=== PATIENT | female | born 1960 | race Caucasian/White ===

== ENCOUNTER 2020-05-26 14:50 | Outpatient (REF) | payer BC, SELFPAY ==
[2020-05-28 16:43] LABS: HPV mRNA E6/E7 Not Detected (Not Detected)
== END 2020-05-26 14:51 | disposition home or self-care (01) ==
LOC: HO.LAB 14:50
PROVIDERS: PCP Internal Medicine; Visit Provider Obstetrics & Gynecology
DX: Z01.419 Encounter for gynecological examination (general) (routine) without abnormal findings (principal); Z78.0 Asymptomatic menopausal state
CPT/HCPCS: 87624; 88142

== ENCOUNTER 2020-10-24 15:51 | Outpatient (REF) | payer BC, SELFPAY ==
--- NOTE | ~2020-10-24 | MM_ITS ---
EXAMINATION: MM SCREENING DIGITAL MAMMOGRAPHY, BILATERAL CLINICAL INFORMATION: Screening. Asymptomatic. The lifetime risk of breast cancer based on the Tyrer-Cuzick Model is 7%. COMPARISON: Mammography: 06/25/2019, 06/19/2018, 05/03/2017, 04/15/2016 TECHNIQUE: Digital mammography is performed in craniocaudal and mediolateral oblique views along with computer-aided detection (CAD). FINDINGS: The breasts are heterogeneously dense, which may obscure small masses (ACR BI-RADS breast composition Category c). Parenchymal pattern is similar to prior studies. There is no significant mass or architectural abnormality or focal developing density. No abnormal calcifications. The axilla and skin contours are unremarkable. MM/MM screening mammo BI IMPRESSION: No significant changes from prior exams. ASSESSMENT: BI-RADS 1: Negative RECOMMENDATION: Routine annual mammography screening. This patient's information was entered into a reminder system with a target due date for their next mammogram.
== END 2020-10-24 15:52 | disposition home or self-care (01) ==
LOC: HO.MAMMO 15:51
PROVIDERS: PCP Internal Medicine; Visit Provider Obstetrics & Gynecology
DX: Z12.31 Encounter for screening mammogram for malignant neoplasm of breast (principal)
CPT/HCPCS: 77067

== ENCOUNTER → 2021-05-28 14:38 | Outpatient (BNVA) | payer BC, SELFPAY | PROVIDERS: PCP Internal Medicine; Visit Provider Obstetrics & Gynecology ==

== ENCOUNTER 2021-10-26 14:56 | Outpatient (REF) | payer BC, SELFPAY ==
--- NOTE | ~2021-10-26 | MM_ITS ---
EXAMINATION: MM SCREENING DIGITAL BREAST TOMOSYNTHESIS, BILATERAL CLINICAL INFORMATION: Screening. Asymptomatic. The lifetime risk of breast cancer based on the Tyrer-Cuzick Model is 9%. COMPARISON: Mammography: 10/24/2020, 06/25/2019, 06/19/2018 TECHNIQUE: Digital breast tomosynthesis is performed in both the craniocaudal and mediolateral oblique views along with computer-aided detection (CAD). Synthesized 2D images are generated from the tomosynthesis. FINDINGS: The breasts are heterogeneously dense, which may obscure small masses (ACR BI-RADS breast composition Category c). There are no significant masses, abnormal calcifications, or other abnormalities. Parenchymal pattern is similar to prior studies. No developing density or interval architectural abnormality. The axilla and skin contours are unremarkable. No significant changes. MM/MM tomosynthesis screening BI IMPRESSION: No mammographic evidence of malignancy. ASSESSMENT: BI-RADS 1: Negative RECOMMENDATION: Routine annual mammography screening. This patient's information was entered into a reminder system with a target due date for their next mammogram.
== END 2021-10-26 14:57 | disposition home or self-care (01) ==
LOC: HO.MAMMO 14:56
PROVIDERS: Visit Provider Internal Medicine
DX: Z12.31 Encounter for screening mammogram for malignant neoplasm of breast (principal)
CPT/HCPCS: 77063; 77067

== ENCOUNTER 2021-11-05 12:50 | Outpatient (REF) | payer BC, SELFPAY ==
--- NOTE | ~2021-11-05 | MM_ITS ---
EXAMINATION: BONE DENSITOMETRY CLINICAL INDICATION: Osteoporosis. COMPARISON: Previous BD dated 08/30/2019 and baseline BD dated 06/23/2010. TECHNIQUE: Using a [employer]choox DXA System (software version: 13.1) manufactured by [employer], dual-energy x-ray absorptiometry was performed of the lumbar spine and left hip. The images are of good technical quality. Summary results are attached. FINDINGS: AP SPINE L1-L4: Current: BMD 1.061 g/cm2, Z-score 1.0, T-score -1.0, normal, 2.5% increase from previous, 0.2% increase from baseline (<5% change is not significant). Prior: BMD 1.035 g/cm2. Baseline: BMD 1.059 g/cm2. LEFT FEMUR, NECK: Current: BMD 0.719 g/cm2, Z-score -0.6, T-score -2.3, osteopenia. Prior: BMD 0.678 g/cm2. Baseline: BMD 0.708 g/cm2. LEFT FEMUR, TOTAL: Current: BMD 0.844 g/cm2, Z-score 0.2, T-score -1.3, osteopenia, 0.7% increase from previous, 2.9% decrease from baseline (<5% change is not significant). Prior: BMD 0.838 g/cm2. Baseline: BMD 0.869 g/cm2. IDENTIFIED RISK FACTORS: Menopause, osteoporosis. HISTORY OF FRACTURE: Foot. MEDICATIONS: Calcium, vitamin D. MM/XR DEXA axial skeleton IMPRESSION: 1. DIAGNOSIS: Osteopenia based on the lowest T-score value of -2.3 in the femoral neck applying World Health Organization criteria. 2. 10-YEAR FRACTURE RISK PREDICTION, FRAX: Major osteoporotic fracture (clinical spine, forearm, hip or shoulder) 10.0%. Hip fracture 1.8%. 3. Treatment Recommendations: NOF guidelines recommend consideration for treatment in postmenopausal women and men age 50 and older presenting with the following: -A hip or vertebral (clinical or morphometric) fracture. -T-score less than or equal to -2.5 at the femoral neck or spine after appropriate evaluation to exclude secondary causes. -Low bone mass at the hip or spine and a 10-year fracture probability by FRAX of greater than or equal to 3% for hip fracture or greater than or equal to 20% for major osteoporotic fracture based on the [place] adapted WHO algorithm. 4. Other Recommendations: All treatment decisions require clinical judgment and consideration of individual patient factors, including patient preferences, comorbidities, previous drug use, risk factors not captured in the FRAX model (e.g. frailty, falls, vitamin D deficiency, increased bone turnover, interval significant decline in bone density) and possible under or overestimation of fracture risk by FRAX. Additional medical evaluation for secondary cause of low bone mineral density may be appropriate. FUTURE SCAN RECOMMENDATION: People with diagnosed cases of osteoporosis or at high risk for fracture should have regular bone mineral density tests. For patients eligible for Medicare, routine testing is allowed once every 2 years. The testing frequency can be increased to one year for patients who have rapidly progressing disease, those who are receiving or discontinuing medical therapy to restore bone mass, or have additional risk factors.
== END 2021-11-05 12:51 | disposition home or self-care (01) ==
LOC: HO.MAMMO 12:50
PROVIDERS: PCP Internal Medicine; Visit Provider Internal Medicine
DX: M81.0 Age-related osteoporosis without current pathological fracture (principal); Z78.0 Asymptomatic menopausal state
CPT/HCPCS: 77080

== ENCOUNTER → 2022-06-01 13:04 | Outpatient (BNVA) | payer BC, SELFPAY | PROVIDERS: Visit Provider Obstetrics & Gynecology | DX: Z01.419 Encounter for gynecological examination (general) (routine) without abnormal findings (principal) ==

== ENCOUNTER 2022-11-01 14:13 | Outpatient (REF) | payer BC, SELFPAY ==
--- NOTE | ~2022-11-01 | MM_ITS ---
EXAMINATION: MM SCREENING DIGITAL BREAST TOMOSYNTHESIS, BILATERAL CLINICAL INFORMATION: Screening. Asymptomatic. The lifetime risk of breast cancer based on the Tyrer-Cuzick Model is 9%. COMPARISON: Mammography: 10/26/2021, 10/24/2020, 06/25/2019 TECHNIQUE: Digital breast tomosynthesis is performed in both the craniocaudal and mediolateral oblique views along with computer-aided detection (CAD). Synthesized 2D images are generated from the tomosynthesis. FINDINGS: The breasts are heterogeneously dense, which may obscure small masses (ACR BI-RADS breast composition Category c). There are no significant masses, abnormal calcifications, or other abnormalities. Parenchymal pattern is similar to prior studies. There is no developing density or architectural abnormality. There are some vascular calcifications posterior 4:00 left breast. The axilla and skin contours are unremarkable. No significant changes. MM/MM tomosynthesis screening BI IMPRESSION: No mammographic evidence of malignancy. ASSESSMENT: BI-RADS 2: Benign RECOMMENDATION: Routine annual mammography screening. This patient's information was entered into a reminder system with a target due date for their next mammogram.
== END 2022-11-01 14:14 | disposition home or self-care (01) ==
LOC: HO.MAMMO 14:13
PROVIDERS: PCP Internal Medicine; Visit Provider Internal Medicine
DX: Z12.31 Encounter for screening mammogram for malignant neoplasm of breast (principal)
CPT/HCPCS: 77063; 77067

== ENCOUNTER 2023-06-14 13:41 | Outpatient (AMB) | payer BC, SELFPAY ==
[2023-06-14 13:49] VITALS: BP 102/64; BMI 20.1
--- NOTE | 2023-06-14 13:49 | A.OFFVIS_ITS ---
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 No complaints. Last Pap/HPV was negative in 06/01 Last Mammogram was BI-RADS 2 in 11/02 Last Colonoscopy was 12 years ago, the patient is in the process of scheduling her next screening colonoscopy PFSH Medical History Depression Osteoporosis Surgical History History of dental surgery H/O foot surgery Social History Alcohol intake: never Sexual orientation: Straight/Heterosexual Gender identity: Female Female Reproductive History Menstrual Age of Menarche: 11 Review of Systems Const All systems reviewed & are unremarkable except as noted in HPI and below Card Reports as per HPI Resp Reports as per HPI GI Reports as per HPI and Reports no additional complaints Reports as per HPI Physical Exam Vital Signs: Last Vital Signs BP 102/64 06/14/23 13:49 BMI result Body Mass Index 20.1 Const General: cooperative, healthy appearing and comfortable Chest Chest palpation & inspection: normal inspection of the chest and normal palpation of entire chest wall Breast/axilla inspection: normal inspection of the breasts and normal inspection of the axillae Breast/axilla palpation: normal palpation of the breasts, normal palpation of the axillae and no axillary lymphadenopathy Resp Effort & Inspection: normal respiratory effort Auscultation: clear to auscultation bilaterally Percussion: percussion normal Cardio Palpation: normal PMI Rate: regular rate Rhythm: regular rhythm Heart sounds: no murmurs and no rubs Peripheral pulses: Peripheral pulses 2+ throughout GI Inspection: Yes normal to inspection Palpation (GI): Soft to palpation, nontender, no guarding, not rigid and No hepatosplenomegaly present Percussion: Yes normal to percussion Auscultation: normal bowel sounds Rectal Exam - Female: deferred General: Yes bladder normal to palpation External Female Exam: No lesion Speculum Exam - Vagina: normal appearance of the vagina, normal palpation, normal vaginal discharge and not erythematous Speculum Exam - Cervix: normal appearance of the cervix and normal palpation Bimanual exam- vagina & uterus: normal bimanual exam, normal palpation, uterine size normal, bladder normal to palpation, consistency normal and normal palpat ion Bimanual Exam- Adnexa, other: normal adnexae, no masses and no tenderness Assessment & Plan Assessment & Plan (1) Well woman exam: Code(s): Z01.419 - Encounter for gynecological examination (general) (routine) without abnormal findings Plan: Co testing not indicated this year. Counseled the patient about the recommended dietary allowance of 1200 mg of Calcium & 600 IU of vitamin D. Instructions given the patient to schedule next screen Mammogram in 11/03. The patient is in the process of scheduling her next screening colonoscopy . The patient was instructed to perform monthly self-breast exams and schedule annual exam in a year. All questions answered and the patient verbalized understanding. Coding Level of Care Code Est Pt Prev Care 40-64y(27613) Diagnoses Well woman exam Z01.419
== END 2023-06-14 14:25 | disposition home or self-care (01) ==
LOC: HO.HWS 13:41
PROVIDERS: PCP Internal Medicine; Visit Provider Obstetrics & Gynecology
DX: Z01.419 Encounter for gynecological examination (general) (routine) without abnormal findings (principal)
CPT/HCPCS: 99396

== ENCOUNTER → 2023-06-14 13:41 | Outpatient (BNVA) | payer BC, SELFPAY | PROVIDERS: PCP Internal Medicine; Visit Provider Obstetrics & Gynecology ==

== ENCOUNTER 2023-11-08 13:36 | Outpatient (REF) | payer BC, SELFPAY | END 2023-11-08 13:37 | disposition home or self-care (01) | LOC: HO.MAMMO 13:36 | PROVIDERS: PCP Internal Medicine; Visit Provider Internal Medicine | DX: Z12.31 Encounter for screening mammogram for malignant neoplasm of breast (principal) | CPT/HCPCS: 77063; 77067 ==

== ENCOUNTER → 2023-11-08 14:00 | Outpatient (BNV) | payer BC, SELFPAY | PROVIDERS: PCP Internal Medicine; Visit Provider Radiology Diagnostic Radiology | DX: Z12.31 Encounter for screening mammogram for malignant neoplasm of breast (principal) | CPT/HCPCS: 77063; 77067 ==

== ENCOUNTER 2023-12-20 08:33 | Outpatient (REF) | payer BC, SELFPAY ==
--- NOTE | ~2023-12-20 | MM_ITS ---
EXAMINATION: BONE DENSITOMETRY CLINICAL INDICATION: Osteopenia. COMPARISON: Previous BD dated 11/05/2021 and baseline BD dated 06/23/2010. TECHNIQUE: Using a [employer] DXA System (software version: 13.1) manufactured by [employer], dual-energy x-ray absorptiometry was performed of the lumbar spine and left hip. The images are of good technical quality. Summary results are attached. FINDINGS: LEFT FEMUR, NECK: Current: BMD 0.645 g/cm2, Z-score -1.0, T-score -2.8, osteoporosis. Prior: BMD 0.719 g/cm2. Baseline: BMD 0.708 g/cm2. LEFT FEMUR, TOTAL: Current: BMD 0.795 g/cm2, Z-score -0.1, T-score -1.7, osteopenia, 5.8% decrease from previous, 8.5% decrease from baseline (<5% change is not significant). Prior: BMD 0.844 g/cm2. Baseline: BMD 0.869 g/cm2. AP SPINE L1-L3 (excluding L4): The data of L1-L4 has been changed to exclude the L4 vertebral body, because degenerative sclerosis at this level may cause overestimation of lumbar spine density. Current: BMD 0.981 g/cm2, Z-score 0.5, T-score -1.6, osteopenia, 4.4% decrease from previous, 7.9% decrease from baseline (<5% change is not significant). Prior: BMD 1.026 g/cm2. Baseline: BMD 1.065 g/cm2. IDENTIFIED RISK FACTORS: Menopause. HISTORY OF FRACTURE: None listed. MEDICATIONS: Calcium supplements or multivitamin, vitamin D, bisphosphonates. MM/XR DEXA axial skeleton IMPRESSION: 1. DIAGNOSIS: Osteoporosis based on the lowest T-score value of -2.8 in the femoral neck applying World Health Organization criteria. 2. 10-YEAR FRACTURE RISK PREDICTION, FRAX: According to the guidelines, FRAX calculation should only be performed on patients in the osteopenia bone density category. Therefore, FRAX was not performed on this patient. 3. Treatment Recommendations: NOF guidelines recommend consideration for treatment in postmenopausal women and men age 50 and older presenting with the following: -A hip or vertebral (clinical or morphometric) fracture. -T-score less than or equal to -2.5 at the femoral neck or spine after appropriate evaluation to exclude secondary causes. -Low bone mass at the hip or spine and a 10-year fracture probability by FRAX of greater than or equal to 3% for hip fracture or greater than or equal to 20% for major osteoporotic fracture based on the [place] adapted WHO algorithm. 4. Other Recommendations: All treatment decisions require clinical judgment and consideration of individual patient factors, including patient preferences, comorbidities, previous drug use, risk factors not captured in the FRAX model (e.g. frailty, falls, vitamin D deficiency, increased bone turnover, interval significant decline in bone density) and possible under or overestimation of fracture risk by FRAX. Additional medical evaluation for secondary cause of low bone mineral density may be appropriate. FUTURE SCAN RECOMMENDATION: People with diagnosed cases of osteoporosis or at high risk for fracture should have regular bone mineral density tests. For patients eligible for Medicare, routine testing is allowed once every 2 years. The testing frequency can be increased to one year for patients who have rapidly progressing disease, those who are receiving or discontinuing medical therapy to restore bone mass, or have additional risk factors.
== END 2023-12-20 08:34 | disposition home or self-care (01) ==
LOC: HO.MAMMO 08:33
PROVIDERS: PCP Internal Medicine; Visit Provider Internal Medicine
DX: Z13.820 Encounter for screening for osteoporosis (principal); Z78.0 Asymptomatic menopausal state
CPT/HCPCS: 77080

== ENCOUNTER 2024-10-05 12:42 | Outpatient (AMB) | payer BC, SELFPAY ==
--- NOTE | 2024-10-05 13:03 | MHC.OFFVIS ---
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 No complaints. Last Pap/HPV was negative in 06/01 Last Mammogram was BI-RADS 1 in 11/03, the patient is scheduled for next screening mammogram in 2 weeks Last Colonoscopy was 2 months ago at [facility], the recommendation was to repeat in 10 years according to the patient, no records available Last DEXA scan was in 01/03, the patient had osteoporosis and was started on alendronate [address] [facility] Medical History Depression Osteoporosis Surgical History History of dental surgery H/O foot surgery Social History Alcohol intake: never Sexual orientation: Straight/Heterosexual Gender identity: Female Female Reproductive History Menstrual Age of Menarche: 11 Date of last pap smear: 05/26/20 (negative pap smear, negative hpv) Date of Mammogram: 11/08/23 (bi rad 1) Date of last Bone Density Screenin12/20/23 Review of Systems Const All systems reviewed & are unremarkable except as noted in HPI and below Card Reports as per HPI Resp Reports as per HPI GI Reports as per HPI and Reports no additional complaints Reports as per HPI Physical Exam Vital Signs: Last Vital Signs BP 102/60 10/05/24 13:08 BMI result Body Mass Index 19.8 Const General: cooperative, healthy appearing and comfortable Chest Chest palpation & inspection: normal inspection of the chest and normal palpation of entire chest wall Breast/axilla inspection: normal inspection of the breasts and normal inspection of the axillae Breast/axilla palpation: normal palpation of the breasts, normal palpation of the axillae and no axillary lymphadenopathy Resp Effort & Inspection: normal respiratory effort Auscultation: clear to auscultation bilaterally Percussion: percussion normal Cardio Palpation: normal PMI Rate: regular rate Rhythm: regular rhythm Heart sounds: no murmurs and no rubs Peripheral pulses: Peripheral pulses 2+ throughout GI Inspection: Yes normal to inspection Palpation (GI): Soft to palpation, nontender, no guarding, not rigid and No hepatosplenomegaly present Percussion: Yes normal to percussion Auscultation: normal bowel sounds Rectal Exam - Female: deferred General: Yes bladder normal to palpation External Female Exam: No lesion Speculum Exam - Vagina: normal appearance of the vagina, normal palpation, normal vaginal discharge and not erythematous Speculum Exam - Cervix: normal appearance of the cervix and normal palpation Bimanual exam- vagina & uterus: normal bimanual exam, normal palpation, uterine size normal, bladder normal to palpation, consistency normal and normal palpation Bimanual Exam- Adnexa, other: normal adnexae, no masses and no tenderness Assessment & Plan Assessment & Plan (1) Well woman exam: Code(s): Z01.419 - Encounter for gynecological examination (general) (routine) without abnormal findings Category: Medical Plan: Co testing done. Counseled the patient about the recommended dietary allowance of 1200 mg of Calcium & 600 IU of vitamin D. Mammogram ordered. The patient was instructed to perform monthly self-breast exams and schedule annual exam in a year. All questions answered and the patient verbalized understanding. Orders: Orders MM tomosynthesis screening BI Today Z12.31 - Encounter for screening mammogram for malignant neoplasm of breast Coding Level of Care Code Est Pt Prev Care 40-64y(25343) Diagnoses Well woman exam Z01.419
[2024-10-05 13:08] VITALS: BP 102/60; BMI 19.8
--- OUTSIDE RECORDS SUMMARY | 2024-10-05 13:25 | XMS_ITS | Clinical Summary ---
Author Organization [facility] Address [address] [place] [address] Phone Care Team Providers Care Winding Inspector Name Role Phone Albert Curtis MD Primary Care Provider [phone] Allergies No known active allergies Medications cholecalciferol (VITAMIN D-3) 50 mcg (2,000 unit) tablet Take 1 tablet (2,000 Units total) by mouth 1 (one) time each day. Active calcium carbonate (CALCIUM 600 ORAL) Take by mouth. Activ e multivit-minerals /folic acid (CENTRUM ADULT 50 PLUS ORAL) Take by mouth. Acti ve alendronate (FOSAMAX) 70 mg tablet Take 1 tablet (70 mg total) by mouth every 7 (seven) days. Take in the morning with a full glass of water, on an empty stomach, and do not take anything else by mouth or lie down for the next 30 min. Active albuterol HFA (PROAIR HFA ; PROVENTIL HFA ; VENTOLIN HFA) 90 mcg/actuation inhalerIndication s:Recurrent pneumonia Inhale 2 puffs by mouth every 6 (six) hours if needed for wheezing or shortness of breath. 3 each 3 4 05/24/20 25 Active guaiFENesin (Mucinex) 600 mg 12 hr tabletIndications :Bronchiectasis without complication (CMS/HCC V24, CMS/HCC V28) Take 1 tablet (600 mg total) by mouth 2 (two) times a day if needed for cough. Do not crush, chew, or split. 20 each 11 5 07/25/19 26 Active Encounters Date Type Department Care Team Description 07/31/2024 2:24 PM EST Anesthesia Event [facility] Endoscopy [address] [place] [phone] Anupam Loera MD Tesfaye VillalpandoJOVON 07/31/2024 1:53 PM EST - 07/31/2024 11:59 PM EST Hospital Encounter [facility] Endoscopy [address] [place] [phone] Candy Sen MD Spencer, Mark A, MD Encounter for screening for malignant neoplasm of colon Discharge Disposition: Home or Self Care 07/25/2024 10:00 AM EST [facility] [address] [place] [phone] Danika Moya MD Bronchiectasis without complication ([facility] V24, [facility] V28) (Primary Dx); Abnormal chest CT; Chronic bronchitis, unspecified chronic bronchitis type ([facility] V24, [facility] V28) 07/20/2024 8:35 AM EST Lab Draw Station - [address] [facility] [address] [facility] [address] [place] [phone] Recurrent pneumonia; Abnormal chest CT 07/18/[address] [phone] [place], [place] 07/13/2024 9:10 AM EST - 07/13/2024 11:59 PM EST Hospital Encounter [facility] CT Scan [address] [place] [phone] Recurrent pneumonia; Abnormal CT of the chest Discharge Disposition: Home or Self Care from Last 3 Months Surgical History Surgery Date Site/Laterality Comments COLONOSCOPY FOOT SURGERY Right Medical History Medical History Date Comments Chronic pneumonia Age related osteoporosis GERD (gastroesophageal reflux disease) Foot fracture, right Social History Tobacco Use Types Packs/Day Years Used Date Smoking Tobacco: Never Passive Smoke Exposure: Past Smokeless Tobacco: Never Tobacco Cessation:Counseling Given: Not Answered Alcohol Use Standard Drinks/Week Comments Not Currently 0 (1 standard drink = 0.6 oz pur e alcohol) Interpersonal Safety Answer Date Record ed Physical Abuse 07/31/2024 Verbal Abuse 07/31/2024 Comments Unknown Sex and Gender Information Value Date Recorded Sex Assigned at Female 07/31/2024 1:47 PM EST Legal Sex Female 8:35 AM EST Gender Identity Female 07/31/2024 1:47 PM EST Sexual Orientation Straight 07/31/2024 1: 47 PM EST Obstetrics History Last Filed Vital Signs Vital Sign Reading Time Taken Comments Blood Pressure 106/70 07/31/2024 2:58 PM EST Pulse 81 07/31/2024 2:58 PM EST Temperature 36.8 ??C (98.2 ??F) 07/31/2024 2:11 PM ES T Respiratory Rate 12 07/31/2024 2:58 PM EST Oxygen Saturation 100% 07/31/2024 2:58 PM EST Inhaled Oxygen Concentration - - Weight 41.3 kg (91 lb) 07/31/2024 2:11 PM EST Height 147.3 cm (4' 10 ) 07/31/2024 2:11 PM EST Body Mass Index 19.02 07/31/2024 2:11 PM EST Plan of Treatment Upcoming Encounters Date Type Department Care Team (Late st Contact Info) Description 01/24/2025 8:45 AM EDT Office Visit [facility] [place] [address] [facility] [place] [phone] Danika Moya MD [address] [place] [id number] Health Maintenance Due Date Last Done Comments Breast Cancer Screening 1960 DTaP,Tdap,and Td Vaccines (1 - Tdap) 1979 Cervical Cancer Screening: Pap Smear 1981 Pneumococcal Vaccine: 50+ Years (1 of 1 - PCV) 2010 Depression Screening 05/16/2022 HIV Screening 05/16/2022 Hepatitis C Screening 05/16/2022 Social Influencers of Health Screening 05/16/2022 Zoster Vaccines (2 of 2) 03/04/2023 01/07/2023 COVID-19 Vaccine ( - season) 2024 09/09/2022, 06/26/2021, 11/20/2020, Additional history exists Influenza Vaccine (Season Ended) 2025 03/18/2023, 04/07/2022, 07/01/2021, Additional history exists Colorectal Cancer Screening: Colonoscopy 07/31/2034 07/31/2024 RSV Immunization Adult Patients (1 - 1-dose 75+ series) 2035 HIB Vaccines Aged Out No longer eligi ble based on patient's age to complete this topic HPV Vaccines Aged Out No longer eligi ble based on patient's age to complete this topic Hepatitis A Vaccines Aged Out No long er eligible based on patient's age to complete this topic Hepatitis B Vaccines Aged Out No long er eligible based on patient's age to complete this topic IPV Vaccines Aged Out No longer eligi ble based on patient's age to complete this topic MMR Vaccines Aged Out No longer eligi ble based on patient's age to complete this topic Meningococcal ACWY Vaccine Aged Out N o longer eligible based on patient's age to complete this topic Meningococcal B Vaccine Aged Out No l onger eligible based on patient's age to complete this topic Pneumococcal Vaccine: Pediatrics (0 to 5 Years) and At-Risk Patients (6 to 64 Years) Aged Out No longer eligible based on patient's age to complete this topic RSV Immunization Patients Under 20 months Aged Out No longer eligible based on patient's age to complete this topic Varicella Vaccines Aged Out No longer eligible based on patient's age to complete this topic Procedures Procedure Name Priority Date/Time Associated Diagnosis Comments COLONOSCOPY Routine 07/31/2024 2:37 PM EST Encounter for screening for malignant neoplasm of colon INTERFERON GAMMA INTERPRETATION Routine 07/20/2024 8:33 AM EST Abnormal chest CT INTERFERON GAMMA ANTIGEN 2 Routine 07/20/2024 8:33 AM EST Abnormal chest CT INTERFERON GAMMA ANTIGEN 1 Routine 07/20/2024 8:33 AM EST Abnormal chest CT INTERFERON GAMMA MITOGEN Routine 07/20/2024 8:33 AM EST Abnormal chest CT INTERFERON GAMMA NIL Routine 07/20/2024 8:33 AM EST Abnormal chest CT CBC WITH AUTO DIFFERENTIAL Routine 07/20/2024 8:33 AM EST Recurrent pneumonia INTERFERON GAMMA FOR TB, QUALITATIVE Routine 07/20/2024 8:33 AM EST Abnormal chest CT CBC AND DIFFERENTIAL Routine 07/20/2024 8:33 AM EST Recurrent pneumonia CT CHEST WO CONTRAST Routine 07/13/2024 9:20 AM EST Recurrent pneumonia Abnormal CT of the chest from Last 3 Months Results * COLONOSCOPY Anesthesia - MAC; [facility] ENDOSCOPY (07/31/2024 2:37 PM EST) Anatomical Region Laterality Modality Endoscopy 07/31/2024 2:15 PM EST Impressions 07/31/2024 2:38 PM EST - The examined portion of the ileum was normal. ? - Diverticulosis in the sigmoid colon. ? - Internal hemorrhoids. ? - The examination was otherwise normal. ? - No specimens collected. Recommendation: ?- Repeat colonoscopy in 10 years for screening ? purposes. Narrative 07/31/2024 2:38 PM EST [facility] GI Patient Name: Ryanne Lara Procedure Date: 07/31/2024 2:15 PM Date of : 1960 Age: 63 Gender: Female Note Status: Finalized Attending MD: Candy Sen MD, Procedure Date No Time: 07/31/2024 Procedure: ? Colonoscopy Indications: ? Screening for colorectal malignant neoplasm Providers: ? Candy Sen MD Referring MD: ?Albert Curtis MD Medicines: ? Propofol per Anesthesia Complications: ? No immediate complications. Estimated Blood Loss: ? Estimated blood loss: none. Procedure: ? Pre-Anesthesia Assessment: ? - ASA Grade Assessment: II - A patient with mild ? systemic disease. ? After I obtained informed consent, the scope was ? passed under direct vision. Throughout the procedure, ? the patient's blood pressure, pulse, and oxygen ? saturations were monitored continuously.The Olympus ? Pediatric Colonoscope was introduced through the anus ? and advanced to the terminal ileum. The colonoscopy ? was performed without difficulty. The patient ? tolerated the procedure well. The quality of the bowel ? preparation was good. Findings: ?The perianal and digital rectal examinations were ? normal. ? The terminal ileum appeared normal. ? A few small-mouthed diverticula were found in the ? sigmoid colon. ? Internal hemorrhoids were found during retroflexion. ? The hemorrhoids were Grade I (internal hemorrhoids ? that do not prolapse). ? The exam was otherwise without abnormality. Procedure Code(s): ? --- Professional --- ? G0121, Colorectal cancer screening; colonoscopy on ? individual not meeting criteria for high risk Diagnosis Code(s): ? --- Professional --- ? Z12.11, Encounter for screening for malignant neoplasm ? of colon CPT copyright 2020 [employer]. All rights reserved. The codes documented in this report are preliminary and upon psychiatric lpn review may be revised to meet current compliance requirements. Candy Sen MD 07/31/2024 2:38:23 PM This report has been signed electronically.Candy Sen MD Number of Addenda: 0 Note Initiated On: 07/31/2024 2:15 PM Scope In: Scope Out: ? Endoscopy Department at [facility] - [address] [place] [address], ? [place] [id number] Procedure Note Candy Sen MD - 07/31/2024 [facility] GI Patient Name: Ryanne Lara Procedure Date: 07/31/2024 2:15 PM Date of : 1960 Age: 63 Gender: Female Note Status: Finalized Attending MD: Candy Sen MD, Procedure Date No Time: 07/31/2024 Procedure: Colonoscopy Indications: Screening for colorectal malignant neoplasm Providers: Candy Sen MD Referring MD: Albert Curtis MD Medicines: Propofol per Anesthesia Complications: No immediate complications. Estimated Blood Loss: Estimated blood loss: none. Procedure: Pre-Anesthesia Assessment: - ASA Grade Assessment: II - A patient with mild systemic disease. After I obtained informed consent, the scope was passed under direct vision. Throughout theprocedure, the patient's blood pressure, pulse, and oxygen saturations were monitored continuously.The Olympus Pediatric Colonoscope was introduced through theanus and advanced to the terminal ileum. The colonoscopy was performed without difficulty. The patient tolerated the procedure well. The quality of thebowel preparation was good. Findings: The perianal and digital rectal examinations were normal. The terminal ileum appeared normal. A few small-mouthed diverticula were found in the sigmoid colon. Internal hemorrhoids were found duringretroflexion. The hemorrhoids were Grade I (internal hemorrhoids that do not prolapse). The exam was otherwise without abnormality. Procedure Code(s): --- Professional --- G0121, Colorectal cancer screening; colonoscopy on individual not meeting criteria for high risk Diagnosis Code(s): --- Professional --- Z12.11, Encounter for screening for malignantneoplasm of colon CPT copyright 2020 [employer]. All rights reserved. The codes documented in this report are preliminary and upon psychiatric lpn reviewmay be revised to meet current compliance requirements. Candy Sen MD 07/31/2024 2:38:23 PM This report has been signed electronically.Candy Sen MD Number of Addenda: 0 Note Initiated On: 07/31/2024 2:15 PM Scope In: Scope Out: Endoscopy Department at [facility] - [address] [place] [id number] IMPRESSION: - The examined portion of the ileum was normal. - Diverticulosis in the sigmoid colon. - Internal hemorrhoids. - The examination was otherwise normal. - No specimens collected. Recommendation: - Repeat colonoscopy in 10 years for screening purposes. Candy Sen MD GI~PROCEDURE ORDERABLES Final Result * Interferon gamma interpretation (07/20/2024 8:33 AM EST) [facility] Signature Quantiferon Plus Interpretation Negative Negative LAB CHEMISTRY METHOD 07/21/2024 10:59 AM EST [facility] Blood Venous blood specimen / Unknown Venipuncture / Unknown 07/20/2024 8:33 AM EST 07/20/2024 8:33 AM EST Danika Moya MD LAB BLOOD ORDERABLES Final Resul t Performing Organization Address [facility] de Phone Number [facility] [address] [place] [address], * Interferon gamma antigen 2 (07/20/2024 8:33 AM EST) Blood Venous blood specimen / Unknown Venipuncture / Unknown 07/20/2024 8:33 AM EST 07/20/2024 8:33 AM EST Danika Moya MD LAB BLOOD ORDERABLES Final Resul t Performing Organization Address [facility] de Phone Number [facility] [address] [place] [address], [place] [phone] * Inteferon gamma antigen 1 (07/20/2024 8:33 AM EST) Blood Venous blood specimen / Unknown Venipuncture / Unknown 07/20/2024 8:33 AM EST 07/20/2024 8:33 AM EST Danika Moya MD LAB BLOOD ORDERABLES Final Resul t Performing Organization Address [facility] de Phone Number [facility] [address] [place] [address], [place] [phone] * Interferon gamma mitogen (07/20/2024 8:33 AM EST) Blood Venous blood specimen / Unknown Venipuncture / Unknown 07/20/2024 8:33 AM EST 07/20/2024 8:33 AM EST us Danika Moya MD LAB BLOOD ORDERABLES Final Resul t Performing Organization Address City/[facility]/ZIP Co de Phone Number [facility] [address] [place] [address], * Interferon gamma NIL (07/20/2024 8:33 AM EST) Blood Venous blood specimen / Unknown Venipuncture / Unknown 07/20/2024 8:33 AM EST 07/20/2024 8:33 AM EST Danika Moya MD LAB BLOOD ORDERABLES Final Resul t Performing Organization Address [facility] de Phone Number [facility] [address] [place] [address], * (ABNORMAL) CBC auto differential (07/20/2024 8:33 AM EST) WBC 3.9(L) 4.8 - 10.8 K/mcL LAB HEMETOLOGY METHOD 07/20/2024 10:10 AM [facility] RBC 4.00 3.80 - 4.80 M/mcL LAB HEMETOLOGY METHOD 07/20/2024 10:10 AM [facility] Hemoglobin 12.5 11.5 - 16.0 g/dL LAB HEMETOLOGY METHOD 07/20/2024 10:10 AM [facility] Hematocrit 38.4 35.0 - 47.0 % LAB HEMETOLOGY METHOD 07/20/2024 10:10 AM [facility] MCV 95.3 79.0 - 98.0 FL LAB HEMETOLOGY METHOD 07/20/2024 10:10 AM [facility] MCH 31.0 27.0 - 32.0 pcg LAB HEMETOLOGY METHOD 07/20/2024 10:10 AM [facility] MCHC 32.6 32.0 - 37.0 g/dL LAB HEMETOLOGY METHOD 07/20/2024 10:10 AM [facility] RDW 13.0 11.0 - 15.0 % LAB HEMETOLOGY METHOD 07/20/2024 10:10 AM [facility] Platelets 198 130 - 400 K/mcL LAB HEMETOLOGY METHOD 07/20/2024 10:10 AM [facility] MPV 9.5 7.0 - 11.0 FL LAB HEMETOLOGY METHOD 07/20/2024 10:10 AM [facility] NRBC 0.0 <1.0 % LAB HEMETOLOGY METHOD 07/20/2024 10:10 AM [facility] NRBC Absolute 0.00 <0.10 K/mcL LAB HEMETOLOGY METHOD 07/20/2024 10:10 AM [facility] Neutrophils Relative 55.2 % LAB HEMETOLOGY METHOD 07/20/2024 10:10 AM [facility] Lymphocytes Relative 35.6 % LAB HEMETOLOGY METHOD 07/20/2024 10:10 AM [facility] Monocytes Relative 7.6 % LAB HEMETOLOGY METHOD 07/20/2024 10:10 AM [facility] Eosinophils Relative 0.8 % LAB HEMETOLOGY METHOD 07/20/2024 10:10 AM [facility] Basophils Relative 0.5 % LAB HEMETOLOGY METHOD 07/20/2024 10:10 AM [facility] Immature Granulocytes Relative 0.3 % LAB HEMETOLOGY METHOD 07/20/2024 10:10 AM [facility] Neutrophils Absolute 2.17 1.50 - 7.00 K/mcL LAB HEMETOLOGY METHOD 07/20/2024 10:10 AM EST [facility] Lymphocytes Absolute 1.40 1.00 - 5.00 K/mcL LAB HEMETOLOGY METHOD 07/20/2024 10:10 AM EST [facility] Monocytes Absolute 0.30 0.20 - 1.00 K/mcL LAB HEMETOLOGY METHOD 07/20/2024 10:10 AM EST [facility] Eosinophils Absolute 0.03 0.00 - 0.50 K/[facility] HEMETOLOGY METHOD 07/20/2024 10:10 AM EST [facility] Basophils Absolute 0.02 0.00 - 0.20 K/[facility] LAB HEMETOLOGY METHOD 07/20/2024 10:10 AM EST [facility] Immature Granulocytes Absolute 0.01 0.00 - 0.03 K/[facility] HEMETOLOGY METHOD 07/20/2024 10:10 AM EST [facility] Blood Venous blood specimen / Unknown Venipuncture / Unknown 07/20/2024 8:33 AM EST 07/20/2024 8:33 AM EST us Danika Moya MD LAB BLOOD ORDERABLES Final Resul t [facility] [address] [place] [address], [place] [phone] * CT Chest wo Contrast (07/13/2024 9:20 AM EST) Anatomical Region Laterality Modality Body Computed Tomogra phy 07/17/2024 1:11 PM EST Impressions 07/17/2024 1:27 PM EST Mild multifocal bronchiectasis and small airways mucus plugging, most extensive in the right middle lobe and lingula. ??The findings are suggestive of chronic infectious or inflammatory airways disease such as ARPITA. ?? -------- FINAL REPORT -------- Dictated By: Matt Aranda Dictated Date: 07/17/2024 13:11 ET Assigned Physician: Matt Aranda Reviewed and Electronically Signed By: Matt Aranda Signed Date: 07/17/2024 13:27 ET Workstation ID: [id number] Transcribed By: Self Edit Transcribed Date: 07/17/2024 13:22 ET Narrative 07/17/2024 1:27 PM EST PROCEDURE: CT of the chest without intravenous contrast. TECHNIQUE: CT of the chest without intravenous contrast administration. ??Coronal and sagittal reformats and MIP reconstructions were created. Dose length product: ??154 mGy-cm. HISTORY: Pneumonia, effusion or abscess suspected, xray done COMPARISON: Chest radiographs dated 10/06/2022. FINDINGS: Lungs/pleura: Trace aspirated debris in the distal trachea. ??Mild bronchiectasis in the right middle lobe and both lower lobes. ??Moderate bronchiectasis in the lingula, most prominent inferiorly. ??There are patchy areas of mucus plugging in the segmental bronchi of the right middle lobe and lingula and in the left greater than right lower lobe. ??Multiple centrilobular groundglass nodules in the inferior right middle lobe and a few small groundglass nodules in the anterior right lower lobe. ??Focal scarring and associated traction bronchiectasis in the lateral right middle lobe. ??Small amount of patchy opacity in the medial right lower lobe at the posterior costophrenic angle, suspected to represent atelectasis. ??There is a small adjacent fat-containing diaphragmatic hernia. ??No pneumothorax or pleural effusion. Mediastinum/lebron: No mediastinal mass or lymphadenopathy. ??No appreciable hilar lymphadenopathy on limited noncontrast evaluation. Vasculature: Normal caliber pulmonary arteries. ??Mild atherosclerotic calcification of the great vessels. Cardiac: Normal heart size. ??Mild coronary artery calcification. Chest wall: There are mildly prominent bilateral axillary nodes. ??No meets size criteria for lymphadenopathy. Limited abdomen: Unremarkable. Bones: Mild degenerative changes of the spine. Procedure Note Matt Aranda MD - 07/17/2024 PROCEDURE: CT of the chest without intravenous contrast. TECHNIQUE: CT of the chest without intravenous contrast administration.Coronal and sagittal reformats and MIP reconstructions were created. Dose length product: 154 mGy-cm. HISTORY: Pneumonia, effusion or abscess suspected, xray done COMPARISON: Chest radiographs dated 10/06/2022. FINDINGS: Lungs/pleura: Trace aspirated debris in the distal trachea. Mildbronchiectasis in the right middle lobe and both lower lobes. Moderatebronchiectasis in the lingula, most prominent inferiorly. There arepatchy areas of mucus plugging in the segmental bronchi of the rightmiddle lobe and lingula and in the left greater than right lower lobe.Multiple centrilobular groundglass nodules in the inferior right middlelobe and a few small groundglass nodules in the anterior right lower lobe.Focal scarring and associated traction bronchiectasis in the lateralright middle lobe. Small amount of patchy opacity in the medial rightlower lobe at the posterior costophrenic angle, suspected to representatelectasis. There is a small adjacent fat-containing diaphragmatichernia. No pneumothorax or pleural effusion. Mediastinum/lebron: No mediastinal mass or lymphadenopathy. No appreciablehilar lymphadenopathy on limited noncontrast evaluation. Vasculature: Normal caliber pulmonary arteries. Mild atheroscleroticcalcification of the great vessels. Cardiac: Normal heart size. Mild coronary artery calcification. Chest wall: There are mildly prominent bilateral axillary nodes. No meetssize criteria for lymphadenopathy. Limited abdomen: Unremarkable. Bones: Mild degenerative changes of the spine. IMPRESSION: Mild multifocal bronchiectasis and small airways mucus plugging, mostextensive in the right middle lobe and lingula. The findings aresuggestive of chronic infectious or inflammatory airways disease such asMAI. -------- FINAL REPORT -------- Dictated By: Matt Aranda Dictated Date: 07/17/2024 13:11 ET Assigned Physician: Matt Aranda Reviewed and Electronically Signed By: Matt Aranda Signed Date: 07/17/2024 13:27 ET Workstation ID: [id number] Transcribed By: Self Edit Transcribed Date: 07/17/2024 13:22 ET [facility] Doc Moya MD IMG CT PROCEDURES Final Result from Last 3 Months Insurance BLUE CR[employer] - [employer] Care Teams Winding Inspector Relationship Specialty Start Date End Date Albert Curtis MD [address] [address] PCP - General Internal Medicine 04/11/24
== END 2024-10-05 13:20 | disposition home or self-care (01) ==
LOC: HO.HWS 12:42
PROVIDERS: PCP Internal Medicine; Visit Provider Obstetrics & Gynecology
DX: Z01.419 Encounter for gynecological examination (general) (routine) without abnormal findings (principal)
CPT/HCPCS: 99396; 99459

== ENCOUNTER 2024-10-05 12:42 | Outpatient (REF) | payer BC, SELFPAY ==
--- OUTSIDE RECORDS SUMMARY | 2024-10-05 14:04 | XMS_ITS | Clinical Summary ---
Author Organization [facility] Address [address] [place] [address] Phone Care Team Providers Care Director Airport Name Role Phone Albert Curtis MD Primary Care Provider Allergies No known active allergies Medications cholecalciferol [...] Description 07/31/2024 2:24 PM EST Anesthesia Event [facility] Endoscopy [address] [place] [phone] Anupam Loera MD Tesfaye VillalpandoJOVON 07/31/2024 1:53 PM EST - 07/31/2024 11:59 PM EST Hospital Encounter [facility] Endoscopy [address] [place] [phone] Candy Sen MD Spencer, Mark A, MD Encounter for screening for malignant neoplasm of colon Discharge Disposition: Home or Self Care 07/25/2024 10:00 AM EST [facility] [address] [place] [phone] Danika Moya MD Bronchiectasis without complication ([facility] V24, [facility] V28) (Primary Dx); Abnormal chest CT; Chronic bronchitis, unspecified chronic bronchitis type ([facility] V24, [facility] V28) 07/20/2024 8:35 AM EST Lab Draw Station - [address] [facility] [address] [place] [phone] Recurrent pneumonia; Abnormal chest CT 07/18/[address] [phone] [place], [place] 07/13/2024 9:10 AM EST - 07/13/2024 11:59 PM EST Hospital Encounter [facility] CT Scan [address] [place] [phone] Recurrent pneumonia; Abnormal CT of the chest [...] 8:45 AM EDT Office Visit Pulmonolgy - [place] [address] [place] [phone] Danika Moya MD [address] [place] [id number] Health Maintenance Due Date Last Done Comments [...] Months Results * COLONOSCOPY Anesthesia - MAC; [facility] ENDOSCOPY (07/31/2024 2:37 PM EST) Anatomical Region [...] ? purposes. Narrative 07/31/2024 2:38 PM EST [facility] GI Patient Name: Ryanne Lara Procedure Date: [...] neoplasm ? of colon CPT copyright 2020 [employer]. All rights reserved. The codes documented in this report are preliminary and upon advertising sales representative review may be revised to meet current compliance requirements. Candy Sen MD 07/31/2024 2:38:23 PM This report has been signed electronically.Candy Sen MD Number of Addenda: 0 Note Initiated On: 07/31/2024 2:15 PM Scope In: Scope Out: ? Endoscopy Department at [facility] - [address] [place] [address], ? [place] [phone] Procedure Note Candy Sen MD - 07/31/2024 [facility] GI Patient Name: Ryanne Lara Procedure Date: [...] for malignantneoplasm of colon CPT copyright 2020 [employer]. All rights reserved. The codes documented in this report are preliminary and upon advertising sales representative reviewmay be revised to meet current compliance requirements. Candy Sen MD 07/31/2024 2:38:23 PM This report has been signed electronically.Candy Sen MD Number of Addenda: 0 Note Initiated On: 07/31/2024 2:15 PM Scope In: Scope Out: Endoscopy Department at [facility] - [address] [place] [phone] IMPRESSION: - The examined portion of the ileum was normal. - Diverticulosis in the sigmoid colon. - Internal hemorrhoids. - The examination was otherwise normal. - No specimens collected. Recommendation: - Repeat colonoscopy in 10 years for screening purposes. Candy Sen MD GI~PROCEDURE ORDERABLES Final Result * Interferon gamma interpretation (07/20/2024 8:33 AM EST) [facility] Signature Quantiferon Plus Interpretation Negative Negative LAB CHEMISTRY METHOD 07/21/2024 10:59 AM EST [facility] Blood Venous blood specimen / Unknown Venipuncture / Unknown 07/20/2024 8:33 AM EST 07/20/2024 8:33 AM EST Danika Moya MD LAB BLOOD ORDERABLES Final Resul t Performing Organization Address [facility] de Phone Number [facility] [address] [place] [address], * Interferon gamma antigen 2 (07/20/2024 8:33 AM EST) Blood Venous blood specimen / Unknown Venipuncture / Unknown 07/20/2024 8:33 AM EST 07/20/2024 8:33 AM EST Danika Moya MD LAB BLOOD ORDERABLES Final Resul t Performing Organization Address [facility] de Phone Number [facility] [address] [place] [address], [place] [phone] * Inteferon gamma antigen 1 (07/20/2024 8:33 AM EST) Blood Venous blood specimen / Unknown Venipuncture / Unknown 07/20/2024 8:33 AM EST 07/20/2024 8:33 AM EST Danika Moya MD LAB BLOOD ORDERABLES Final Resul t Performing Organization Address [facility] de Phone Number [facility] [address] [place] [address], [place] [phone] * Interferon gamma mitogen (07/20/2024 8:33 AM EST) Blood Venous blood specimen / Unknown Venipuncture / Unknown 07/20/2024 8:33 AM EST 07/20/2024 8:33 AM EST us Danika Moya MD LAB BLOOD ORDERABLES Final Resul t Performing Organization Address City/[facility]/ZIP Co de Phone Number [facility] [address] [place] [address], * Interferon gamma NIL (07/20/2024 8:33 AM EST) Blood Venous blood specimen / Unknown Venipuncture / Unknown 07/20/2024 8:33 AM EST 07/20/2024 8:33 AM EST Danika Moya MD LAB BLOOD ORDERABLES Final Resul t Performing Organization Address [facility] de Phone Number [facility] [address] [place] [address], * (ABNORMAL) CBC auto differential (07/20/2024 8:33 AM EST) WBC 3.9(L) 4.8 - 10.8 K/mcL LAB HEMETOLOGY METHOD 07/20/2024 10:10 AM [facility] RBC 4.00 3.80 - 4.80 M/mcL LAB HEMETOLOGY METHOD 07/20/2024 10:10 AM [facility] Hemoglobin 12.5 11.5 - 16.0 g/dL LAB HEMETOLOGY METHOD 07/20/2024 10:10 AM [facility] Hematocrit 38.4 35.0 - 47.0 % LAB HEMETOLOGY METHOD 07/20/2024 10:10 AM [facility] MCV 95.3 79.0 - 98.0 FL LAB HEMETOLOGY METHOD 07/20/2024 10:10 AM [facility] MCH 31.0 27.0 - 32.0 pcg LAB HEMETOLOGY METHOD 07/20/2024 10:10 AM [facility] MCHC 32.6 32.0 - 37.0 g/dL LAB HEMETOLOGY METHOD 07/20/2024 10:10 AM [facility] RDW 13.0 11.0 - 15.0 % LAB HEMETOLOGY METHOD 07/20/2024 10:10 AM [facility] Platelets 198 130 - 400 K/mcL LAB HEMETOLOGY METHOD 07/20/2024 10:10 AM [facility] MPV 9.5 7.0 - 11.0 FL LAB HEMETOLOGY METHOD 07/20/2024 10:10 AM [facility] NRBC 0.0 <1.0 % LAB HEMETOLOGY METHOD 07/20/2024 10:10 AM [facility] NRBC Absolute 0.00 <0.10 K/mcL LAB HEMETOLOGY METHOD 07/20/2024 10:10 AM [facility] Neutrophils Relative 55.2 % LAB HEMETOLOGY METHOD 07/20/2024 10:10 AM [facility] Lymphocytes Relative 35.6 % LAB HEMETOLOGY METHOD 07/20/2024 10:10 AM [facility] Monocytes Relative 7.6 % LAB HEMETOLOGY METHOD 07/20/2024 10:10 AM [facility] Eosinophils Relative 0.8 % LAB HEMETOLOGY METHOD 07/20/2024 10:10 AM [facility] Basophils Relative 0.5 % LAB HEMETOLOGY METHOD 07/20/2024 10:10 AM [facility] Immature Granulocytes Relative 0.3 % LAB HEMETOLOGY METHOD 07/20/2024 10:10 AM [facility] Neutrophils Absolute 2.17 1.50 - 7.00 K/mcL LAB HEMETOLOGY METHOD 07/20/2024 10:10 AM EST [facility] Lymphocytes Absolute 1.40 1.00 - 5.00 K/mcL LAB HEMETOLOGY METHOD 07/20/2024 10:10 AM EST [facility] Monocytes Absolute 0.30 0.20 - 1.00 K/mcL LAB HEMETOLOGY METHOD 07/20/2024 10:10 AM EST [facility] Eosinophils Absolute 0.03 0.00 - 0.50 K/[facility] LAB HEMETOLOGY METHOD 07/20/2024 10:10 AM EST [facility] Basophils Absolute 0.02 0.00 - 0.20 K/[facility] LAB HEMETOLOGY METHOD 07/20/2024 10:10 AM EST [facility] Immature Granulocytes Absolute 0.01 0.00 - 0.03 K/[facility] LAB HEMETOLOGY METHOD 07/20/2024 10:10 AM EST [facility] Blood Venous blood specimen / Unknown Venipuncture / Unknown 07/20/2024 8:33 AM EST 07/20/2024 8:33 AM EST us Danika Moya MD LAB BLOOD ORDERABLES Final Resul t [facility] [address] [place] [address], [place] [phone] * CT Chest wo Contrast (07/13/2024 9:20 [...] Signed Date: 07/17/2024 13:27 ET Workstation ID: [id number] Transcribed By: Self Edit Transcribed Date: 07/17/2024 [...] Signed Date: 07/17/2024 13:27 ET Workstation ID: [id number] Transcribed By: Self Edit Transcribed Date: 07/17/2024 13:22 ET [facility] Doc Moya MD IMG CT PROCEDURES Final Result from Last 3 Months Insurance [employer] - [employer] Care Teams Director [place] Relationship Specialty Start Date End Date Albert Curtis MD [address] [address] PCP - General Internal Medicine 04/11/24
[2024-10-12 12:55] LABS: HPV Genotype 16 Negative (Negative); HPV Genotype 18 Negative (Negative); HPV High Risk Negative (Negative)
== END 2024-10-05 12:43 | disposition home or self-care (01) ==
LOC: HO.LNP 12:42
PROVIDERS: PCP Internal Medicine; Visit Provider Obstetrics & Gynecology
DX: Z01.419 Encounter for gynecological examination (general) (routine) without abnormal findings (principal); Z11.51 Encounter for screening for human papillomavirus (HPV)
CPT/HCPCS: 87626; 88175

== ENCOUNTER 2024-11-13 13:43 | Outpatient (REF) | payer BC, SELFPAY ==
--- OUTSIDE RECORDS SUMMARY | 2024-11-13 15:24 | XMS_ITS | Clinical Summary ---
Author Organization [facility] Address [address] [place] [address] Phone Care Team Providers Care Home Health Physical Therapist Name Role Phone Albert Curtis MD Primary Care Provider [phone]- [phone] Allergies No known active allergies Medications cholecalciferol [...] Encounters Date Type Department Care Team Description 10/16/2024 Lab Requisition [facility] Main Lab [address] [facility] [place] [address] Jesús Sparks PA Other retirement (current) drug therapy; Encounter for screening for nutritional disorder; Encounter for screening for diabetes mellitus; Chronic fatigue, unspecified; Raised antibody titer 10/12/2024 Telephone [facility] [address] [place] [address] Danika Moya MD last office notes request from Last 3 Months Surgical History Surgery [...] Upcoming Encounters Date Type Department Care Team ([facility] Contact Info) Description 01/24/2025 8:45 AM EDT [facility] [address] [place] [id number] Danika Moya MD [address] [facility] [address] [place] [address] Health Maintenance Due Date Last Done Comments Breast Cancer Screening 1960 DTaP,Tdap,and Td Vaccines (1 - Tdap) 1979 Cervical Cancer Screening: Pap Smear 1981 Pneumococcal Vaccine: 50+ Years (1 of 1 - PCV) 2010 Depression Screening 05/16/2022 HIV Screening 05/16/2022 Hepatitis C Screening 05/16/2022 Social Influencers of Health Screening 05/16/2022 Zoster Vaccines (2 of 2) 03/04/2023 01/07/2023 COVID-19 Vaccine ( season) 2024 09/09/2022, 06/26/2021, 11/20/2020, Additional history exists Influenza Vaccine (Season Ended) 2025 03/18/2023, 04/07/2022, 07/01/2021, Additional history exists Cholesterol Screening (Lipid Panel) 10/15/2029 10/15/2024 Colorectal Cancer Screening: Colonoscopy 07/31/2034 07/31/2024 RSV [...] Procedure Name Priority Date/Time Associated Diagnosis Comments RETICULOCYTE COUNT Routine 10/15/2024 12 :00 AM EDT Other retirement (current) drug therapy Encounter for screening for nutritional disorder Encounter for screening for diabetes mellitus Chronic fatigue, unspecified Raised antibody titer SST - GOLD Routine 10/15/2024 12:00 AM EDT Other retirement (current) drug therapy Encounter for screening for nutritional disorder Encounter for screening for diabetes mellitus Chronic fatigue, unspecified Raised antibody titer CBC WITH AUTO DIFFERENTIAL Routine 10/15/2024 12:00 AM EDT Other retirement (current) drug therapy Encounter for screening for nutritional disorder Encounter for screening for diabetes mellitus Chronic fatigue, unspecified Raised antibody titer VITAMIN D 25 HYDROXY Routine 10/15/2024 12:00 AM EDT Other intermodal truck driver (current) drug therapy Encounter for screening for nutritional disorder Encounter for screening for diabetes mellitus Chronic fatigue, unspecified Raised antibody titer THYROID STIMULATING HORMONE Routine 10/15/2024 12:00 AM EDT Other intermodal truck driver (current) drug therapy Encounter for screening for nutritional disorder Encounter for screening for diabetes mellitus Chronic fatigue, unspecified Raised antibody titer MAGNESIUM Routine 10/15/2024 12:00 AM EDT Other retirement (current) drug therapy Encounter for screening for nutritional disorder Encounter for screening for diabetes mellitus Chronic fatigue, unspecified Raised antibody titer HEMOGLOBIN A1C Routine 10/15/2024 12:00 AM EDT Other retirement (current) drug therapy Encounter for screening for nutritional disorder Encounter for screening for diabetes mellitus Chronic fatigue, unspecified Raised antibody titer THYROXINE FREE Routine 10/15/2024 12:00 AM EDT Other retirement (current) drug therapy Encounter for screening for nutritional disorder Encounter for screening for diabetes mellitus Chronic fatigue, unspecified Raised antibody titer CBC AND DIFFERENTIAL Routine 10/15/2024 12:00 AM EDT Other intermodal truck driver (current) drug therapy Encounter for screening for nutritional disorder Encounter for screening for diabetes mellitus Chronic fatigue, unspecified Raised antibody titer VITAMIN B12 Routine 10/15/2024 12:00 AM EDT Other intermodal truck driver (current) drug therapy Encounter for screening for nutritional disorder Encounter for screening for diabetes mellitus Chronic fatigue, unspecified Raised antibody titer LIPID PANEL WITH REFLEX TO DIRECT LDL Routine 10/15/2024 12:00 AM EDT Other intermodal truck driver (current) drug therapy Encounter for screening for nutritional disorder Encounter for screening for diabetes mellitus Chronic fatigue, unspecified Raised antibody titer COMPREHENSIVE METABOLIC PANEL Routine 10/15/2024 12:00 AM EDT Other intermodal truck driver (current) drug therapy Encounter for screening for nutritional disorder Encounter for screening for diabetes mellitus Chronic fatigue, unspecified Raised antibody titer COLONOSCOPY Routine 07/31/2024 2:37 PM EST Encounter for screening for malignant neoplasm of colon from Last 3 Months or Most Recently Relevant to Health Maintenance Results * SST tube (10/15/2024 12:00 AM EDT) Extra Tube Hold for add-ons. 10/16/2024 11:01 AM EDT [facility] Comment:Auto resulted. Blood Venous blood specimen / Unknown 10/15/2024 10/16/2024 9:10 AM EDT us Jesús ROMERO LAB BLOOD ORDERABLES Final Res ult [facility] [address] [place] [address], [place] [phone] * (ABNORMAL) Lipid panel with reflex to direct LDL (10/15/2024 12:00 AM EDT) Cholesterol 187 0 - 200 mg/dL LAB CHEMISTRY METHOD 10/16/2024 10:55 AM EDT [facility] Triglycerides 64 0 - 150 mg/dL LAB CHEMISTRY METHOD 10/16/2024 10:55 AM EDT [facility] HDL 71 >=40 mg/dL LAB CHEMISTRY METHOD 10/16/2024 10:55 AM EDT [facility] LDL Calculated 103(H) 0 - 100 mg/dL LAB CHEMISTRY METHOD 10/16/2024 10:55 AM EDT [facility] VLDL Cholesterol Igor 12.8 mg/dL LAB [facility]STR[facility] METHOD [facility] Non HDL Chol[facility] (LDL+VLDL) 116 <145 mg/dL LAB CHE[facility]STR[facility] METHOD [facility] Chol/HDL Ratio 2.6 0.0 - 4.4 LAB CHEMISTRY METHOD 10/16/2024 10:55 AM T [facility] Blood Venous blood specimen / Unknown 10/15/2024 10/16/2024 9:10 AM EDT us Jesús ROMERO LAB BLOOD ORDERABLES Final Res ult [facility] [address] [place] [address], * (ABNORMAL) CBC auto differential (10/15/2024 12:00 AM EDT) WBC 4.0(L) 4.8 - 10.8 K/mcL LAB HEMETOLOGY METHOD 10/16/2024 9:30 AM EDT [facility] RBC 3.70(L) 3.80 - 4.80 M/mcL LAB HEMETOLOGY METHOD 10/16/2024 9:30 AM EDT [facility] Hemoglobin 11.6 11.5 - 16.0 g/dL LAB HEMETOLOGY METHOD 10/16/2024 9:30 AM [facility] Hematocrit 37.6 35.0 - 47.0 % LAB HEMETOLOGY METHOD 10/16/2024 9:30 AM [facility] MCV 101.9(H) 79.0 - 98.0 FL LAB HEMETOLOGY METHOD 10/16/2024 9:30 AM [facility] MCH 31.4 27.0 - 32.0 pcg LAB HEMETOLOGY METHOD 10/16/2024 9:30 AM [facility] MCHC 30.9(L) 32.0 - 37.0 g/dL LAB HEMETOLOGY METHOD 10/16/2024 9:30 AM [facility] RDW 13.9 11.0 - 15.0 % LAB HEMETOLOGY METHOD 10/16/2024 9:30 AM [facility] Platelets 192 130 - 400 K/mcL LAB HEMETOLOGY METHOD 10/16/2024 9:30 AM [facility] MPV 9.7 7.0 - 11.0 FL LAB HEMETOLOGY METHOD 10/16/2024 9:30 AM [facility] NRBC 0.0 <1.0 % LAB HEMETOLOGY METHOD 10/16/2024 9:30 AM [facility] NRBC Absolute 0.00 <0.10 K/mcL LAB HEMETOLOGY METHOD 10/16/2024 9:30 AM [facility] Neutrophils Relative 64.7 % LAB HEMETOLOGY METHOD 10/16/2024 9:30 AM [facility] Lymphocytes Relative 26.2 % LAB HEMETOLOGY METHOD 10/16/2024 9:30 AM [facility] Monocytes Relative 7.8 % LAB HEMETOLOGY METHOD 10/16/2024 9:30 AM [facility] Eosinophils Relative 0.5 % LAB HEMETOLOGY METHOD 10/16/2024 9:30 AM EDT [facility] Basophils Relative 0.5 % LAB HEMETOLOGY METHOD 10/16/2024 9:30 AM EDT [facility] Immature Granulocytes Relative 0.3 % LAB HEMETOLOGY METHOD 10/16/2024 9:30 AM EDT [facility] Neutrophils Absolute 2.57 1.50 - 7.00 K/mcL LAB HEMETOLOGY METHOD 10/16/2024 9:30 AM EDT [facility] Lymphocytes Absolute 1.04 1.00 - 5.00 K/mcL LAB HEMETOLOGY METHOD 10/16/2024 9:30 AM EDT [facility] Monocytes Absolute 0.31 0.20 - 1.00 K/mcL LAB HEMETOLOGY METHOD 10/16/2024 9:30 AM EDT [facility] Eosinophils Absolute 0.02 0.00 - 0.50 K/mcL LAB HEMETOLOGY METHOD 10/16/2024 9:30 AM EDT [facility] Basophils Absolute 0.02 0.00 - 0.20 K/mcL LAB HEMETOLOGY METHOD 10/16/2024 9:30 AM EDT [facility] Immature Granulocytes Absolute 0.01 0.00 - 0.03 K/mcL LAB HEMETOLOGY METHOD 10/16/2024 9:30 AM EDT [facility] Blood Venous blood specimen / Unknown 10/15/2024 10/16/2024 9:10 AM EDT us Jesús ROMERO LAB BLOOD ORDERABLES Final Res ult [facility] [address] [place] [address], * (ABNORMAL) Vitamin D 25 hydroxy (10/15/2024 12:00 AM EDT) [facility] Vit D, 25-Hydroxy 104.8(H) 30.0 - 80.0 ng/mL LAB CHEMISTRY METHOD 10/16/2024 12:32 PM EDT [facility] Blood Venous blood specimen / Unknown 10/15/2024 10/16/2024 9:10 AM EDT us Jesús ROMERO LAB BLOOD ORDERABLES Final Res ult Performing Organization Address City/[facility]/ZIP Co de Phone Number [facility] [address] [place] [address], [place] [phone] * Reticulocyte count (10/15/2024 12:00 AM EDT) [facility] Retic Ct Abs 0.050 0.030 - 0.090 M/mcL LAB HEMETOLOGY METHOD 10/16/2024 8:38 PM EDT [facility] Retic Ct Pct 1.2 0.7 - 1.7 % LAB HEMETOLOGY METHOD 10/16/2024 8:38 PM EDT [facility] Immature Retic Fract 6.7 2.3 - 15.9 % LAB HEMETOLOGY METHOD 10/16/2024 8:38 PM EDT [facility] Reticulocyte Hemoglobin 34.3 >29.0 pcg LAB HEMETOLOGY METHOD 10/16/2024 8:38 PM EDT [facility] Blood Venous blood specimen / Unknown 10/15/2024 10/16/2024 5:52 PM EDT us Jesús ROMERO LAB BLOOD ORDERABLES Final Res ult Performing Organization Address City/[facility]/ZIP Co de Phone Number [facility] [address] [place] [address], [place] [phone] * Thyroid stimulating hormone (10/15/2024 12:00 AM EDT) [facility] TSH 3.54 0.40 - 4.00 mcIU/mL LAB CHEMISTRY METHOD 10/16/2024 11:31 AM EDT [facility] Blood Venous blood specimen / Unknown 10/15/2024 10/16/2024 9:10 AM EDT us Jesús ROMERO LAB BLOOD ORDERABLES Final Res ult [facility] [address] [place] [address], [place] [phone] * Thyroxine free (10/15/2024 12:00 AM EDT) Free T4 1.01 0.70 - 1.80 ng/dL LAB CHEMISTRY METHOD 10/16/2024 11:31 AM EDT [facility] Blood Venous blood specimen / Unknown 10/15/2024 10/16/2024 9:10 AM EDT Jesús ROMERO LAB BLOOD ORDERABLES Final Res ult Performing Organization Address [facility]/ZIP Co de Phone Number [facility] [address] [place] [address], [place] [phone] * Magnesium (10/15/2024 12:00 AM EDT) Magnesium 1.9 1.9 - 2.6 mg/dL LAB CHEMISTRY METHOD 10/16/2024 10:15 AM EDT [facility] Blood Venous blood specimen / Unknown 10/15/2024 10/16/2024 9:10 AM EDT us Jesús ROMERO LAB BLOOD ORDERABLES Final Res ult Performing Organization Address City/[facility]/ZIP Co de Phone Number [facility] [address] [place] [address], [place] [phone] * Hemoglobin A1c (10/15/2024 12:00 AM EDT) Hemoglobin A1C 5.7 <6.5 % LAB CHEMISTRY METHOD 10/16/2024 12:41 PM EDT [facility] Mean Bld Glu Estim. 117 mg/dL LAB CHEMISTRY METHOD 10/16/2024 12:41 PM EDT [facility] Blood Venous blood specimen / Unknown 10/15/2024 10/16/2024 9:10 AM EDT us Jesús ROMERO LAB BLOOD ORDERABLES Final Res ult Performing Organization Address City/[facility]/ZIP Co de Phone Number [facility] [address] [place] [address], [place] [phone] * Vitamin B12 (10/15/2024 12:00 AM EDT) Pathologist [facility] Vitamin B-12 417 250 - 900 pcg/mL LAB CHEMISTRY METHOD 10/16/2024 10:55 AM EDT [facility] Blood Venous blood specimen / Unknown 10/15/2024 10/16/2024 9:10 AM EDT us Jesús ROMERO LAB BLOOD ORDERABLES Final Res ult [facility] [address] [place] [address], [place] [phone] * Comprehensive metabolic panel (10/15/2024 12:00 AM EDT) Pathologist [facility] Sodium 139 133 - 145 mmol/L LAB CHEMISTRY METHOD 10/16/2024 10:55 AM EDT [facility] Potassium 4.3 3.5 - 5.5 mmol/L LAB CHEMISTRY METHOD 10/16/2024 10:55 AM EDT [facility] Chloride 105 96 - 110 mmol/L LAB CHEMISTRY METHOD 10/16/2024 10:55 AM [facility] CO2 25 21 - 32 mmol/L LAB CHEMISTRY METHOD 10/16/2024 10:55 AM [facility] Anion Gap 9 3 - 11 LAB CHEMISTRY METHOD 10/16/2024 10:55 AM [facility] Glucose 89 70 - 100 mg/dL LAB CHEMISTRY METHOD 10/16/2024 10:55 AM [facility] BUN 16 5 - 25 mg/dL LAB CHEMISTRY METHOD 10/16/2024 10:55 AM [facility] Creatinine 0.84 0.50 - 1.10 mg/dL LAB CHEMISTRY METHOD 10/16/2024 10:55 AM [facility] eGFR 78 >=60 mL/min/1. 73m2 LAB CHEMISTRY METHOD 10/16/2024 10:55 AM [facility] Comment:Calculation based on the??Chronic Kidney Disease Epidemiology Collaboration (CKD-EPI) equation refit??without adjustment for race. BUN/Creatinine Ratio 19.0 LAB CHEMISTRY METHOD 10/16/2024 10:55 AM [facility] Calcium 8.9 8.5 - 10.5 mg/dL LAB CHEMISTRY METHOD 10/16/2024 10:55 AM [facility] AST (SGOT) 26 10 - 42 unit/L LAB CHEMISTRY METHOD 10/16/2024 10:55 AM [facility] ALT (SGPT) 37 10 - 60 unit/L LAB CHEMISTRY METHOD 10/16/2024 10:55 AM [facility] Alkaline Phosphatase 66 42 - 121 unit/L LAB CHEMISTRY METHOD 10/16/2024 10:55 AM [facility] Total Protein 7.8 6.0 - 8.0 g/dL LAB CHEMISTRY METHOD 10/16/2024 10:55 AM [facility] Albumin 3.9 3.2 - 5.0 g/dL LAB CHEMISTRY METHOD 10/16/2024 10:55 AM EDT [facility] Total Bilirubin 0.5 0.0 - 1.4 mg/dL LAB CHEMISTRY METHOD 10/16/2024 10:55 AM EDT [facility] Blood Venous blood specimen / Unknown 10/15/2024 10/16/2024 9:10 AM EDT Jesús ROMERO LAB BLOOD ORDERABLES Final Res ult [facility] [address] [place] [address], * COLONOSCOPY [facility]est[place] - [facility] [facility] ENDOSCOPY (07/31/2024 2:37 PM EST) Anatomical Region [...] ? purposes. Narrative 07/31/2024 2:38 PM EST [facility] GI Patient Name: Ryanne Lara [...] neoplasm ? of colon CPT copyright 2020 [employer]. All rights reserved. The codes documented in this report are preliminary and upon system technologist review may be revised to meet current compliance requirements. Candy Sen MD 07/31/2024 2:38:23 PM This report has been signed electronically.Candy Sen MD Number of Addenda: 0 Note Initiated On: 07/31/2024 2:15 PM Scope In: Scope Out: ? Endoscopy Department at [facility] - [address] [place] [address], ? [place] [address] Procedure Note Candy Sen MD - 07/31/2024 [facility] GI Patient Name: Ryanne Lara [...] for malignantneoplasm of colon CPT copyright 2020 [employer]. All rights reserved. The codes documented in this report are preliminary and upon system technologist reviewmay be revised to meet current compliance requirements. Candy Sen MD 07/31/2024 2:38:23 PM This report has been signed electronically.Candy Sen MD Number of Addenda: 0 Note Initiated On: 07/31/2024 2:15 PM Scope In: Scope Out: Endoscopy Department at [facility] - [address] [place] [id number] IMPRESSION: - The examined portion of the ileum was normal. - Diverticulosis in the sigmoid colon. - Internal hemorrhoids. - The examination was otherwise normal. - No specimens collected. Recommendation: - Repeat colonoscopy in 10 years for screening purposes. us Candy Sen MD GI~PROCEDURE ORDERABLES Final Result from Last 3 Months or Most Recently Relevant to Health Maintenance Insurance [facility] Care Teams Home Health Physical Therapist Relationship Specialty Start Date End Date Albert Curtis MD [address] [place] [id number] PCP - General Internal Medicine 04/11/24
== END 2024-11-13 13:44 | disposition home or self-care (01) ==
LOC: HO.MAMMO 13:43
PROVIDERS: Visit Provider Internal Medicine
DX: Z12.31 Encounter for screening mammogram for malignant neoplasm of breast (principal)
CPT/HCPCS: 77063; 77067

== ENCOUNTER → 2024-11-13 14:00 | Outpatient (BNV) | payer BC, SELFPAY | PROVIDERS: Visit Provider Internal Medicine | DX: Z12.31 Encounter for screening mammogram for malignant neoplasm of breast (principal) | CPT/HCPCS: 77063; 77067 ==